=== PATIENT | male | born 1990 | race African-American/Black ===

== ENCOUNTER 2020-12-04 08:09 | Emergency (ER) | payer SELFPAY ==
[~2020-12-04] VITALS: Ht 172.7 cm; Wt 102.0 kg
[2020-12-04 09:08] LABS: BASOPHILS % 0.5 % (0.0-2.0); EOSINOPHILS % 3.4 % (0.0-5.0); HEMATOCRIT. 39.7 % (42.0-52.0); LYMPHOCYTES % 23.2 % (20.0-50.0); MEAN CORPUSCULAR HEMOGLOBIN 29.1 pg (28.0-32.0); MEAN CORPUSCULAR VOLUME 88.9 fL (80.0-94.0); MONOCYTES % 8.1 % (2.0-8.0); NEUTROPHILS % 64.8 % (40.0-76.0); PLATELET 345 x1000/uL (130-400); RED BLOOD CELL COUNT 4.47 mill/uL (4.7-6.1); RED CELL DISTRIBUTION WIDTH 12.6 % (11.6-14.6)
[2020-12-04 09:15] LABS: CHLORIDE 104 mEq/L (98-107)
[2020-12-04 10:50] VITALS: BP 129/82
== END 2020-12-04 10:54 | disposition home or self-care (01) ==
LOC: ER 08:09
DX: R60.0 Localized edema (principal)
CPT/HCPCS: 36415; 80053; 83880; 84443; 85025; 93005; 93970; 99285; Z7610

== ENCOUNTER 2020-12-23 11:52 | Emergency (ER) | payer MEDICAID ==
[~2020-12-23] VITALS: Ht 172.7 cm; Wt 103.0 kg
[2020-12-23] MEDS ORDERED: ACETAMINOPHEN 325MG TABLET PO ONE (13:45)
[2020-12-23 16:02] VITALS: BP 117/87
== END 2020-12-23 16:03 | disposition home or self-care (01) ==
LOC: ER 11:52
DX: J02.9 Acute pharyngitis, unspecified (principal); Z20.822 Contact with and (suspected) exposure to COVID-19
CPT/HCPCS: 99283; C9803; U0003; U0005